=== PATIENT | male | born 1955 | race Caucasian/White ===

== ENCOUNTER 2016-10-24 08:35 | Inpatient (IN) | payer OTHER ==
[~2016-10-24] VITALS: Ht 188 cm; Wt 84.4 kg
[~2016-10-24 08:35] MED LIST: ADVAIR HFA120 INHALA IH; ADVIL200 MG PO; AUBAGIO14 MG PO; AUGMENTIN875 MG PO; BREO ELLIPTA I1 EACH IH; CALTRATE 6001 TABLE1 PO; CIPRO250 MG PO; CIPROFLOXACIN500 M1 PO; COLACE100 MG PO; DOXYCYCLINE HY100 M3 PO; GABAPENTIN300 MG PO; NICODERM CQ1 EAC2 TD; NORCO 5/3251 TABLET PO; PREDNISONE10 M1 PO; PROAIR HFA8.5 GM IH; SPIRIVA RESPIMAT4 GM IH; SPIRIVA1 INHALATI IH; TAMSULOSIN HCL0.4 MG PO; TUDORZA PRESS400 MCG IH; TYLENOL COLD &1 EACH PO; TYLENOL PM1 CAPLET PO; TYSABRI300 MG/15 IV
[2016-10-26] MEDS ORDERED: PREDNISONE20 MG PO (09:12)
[2016-10-26] MEDS ORDERED: LEVAQUIN500 MG PO (09:12)
[2016-10-26] MEDS ORDERED: TAMSULOSIN HCL0.4 MG PO (09:12)
[2017-01-16 06:18] VITALS: BP 119/77
[2017-01-16 06:38] LABS: BASOPHIL COUNT 0.1 K/uL (0-0.1); EOSINOPHIL COUNT 0.5 K/uL (0-0.3); HEMATOCRIT 42.6 % (38.0-50.0); IMMATURE GRANULOCYTE (%) 0.3 % (0.0-0.7); LYMPHOCYTE COUNT 2.4 K/uL (1.0-2.8); MCH 27.6 PG (29.0-34.0); MCHC 31.9 G/DL (30.0-36.0); MCV 86.6 FL (86-99); MONOCYTE (%) 10.4 % (3-12); MONOCYTE COUNT 1.1 K/uL (0-0.8); NEUTROPHIL (%) 59.9 % (45-76); NEUTROPHIL COUNT 6.1 K/uL (1.8-6.4); PLATELET COUNT 249 K/uL (156-360); RBC DIS.WIDTH-CV 14.6 % (11.8-14.6); RBC DIS.WIDTH-SD 46.1 % (39-53); RED BLOOD COUNT 4.92 M/uL (4.00-5.50); WHITE BLOOD COUNT 10.1 K/uL (4.1-10.2)
[2017-01-16 06:41] LABS: PROTHROMBIN TIME 9.8 (9.2-11.2); PTT 25.9 (25-32)
[2017-01-16 06:47] LABS: ANION GAP 7 MEQ/L (2-14); CHLORIDE 108 MEQ/L (99-109); POTASSIUM 4.4 MEQ/L (3.7-5.4); SAMPLE HEMOLYSIS CHECK 0; SAMPLE ICTERIC CHECK 0; SAMPLE LIPEMIA CHECK 0; SODIUM 142 MEQ/L (136-147); TOTAL BILIRUBIN 0.4 MG/DL (0.0-1.0)
[2017-01-16 06:53] LABS: ALKALINE PHOSPHATASE 66 IU/L (3-129); GFR ESTIMATE (CALCULATED) > 59 mL/min/; GLUCOSE 88 mg/dL (70-99); UREA NITROGEN (BUN) 17 mg/dL (9-23)
[2017-01-16 11:43] LABS: BASOPHIL COUNT 0.1 K/uL (0-0.1); EOSINOPHIL (%) 0.7 % (0-5); EOSINOPHIL COUNT 0.2 K/uL (0-0.3); IMMATURE GRANULOCYTE (%) 0.4 % (0.0-0.7); IMMATURE GRANULOCYTE COUNT 0.1 K/uL; LYMPHOCYTE COUNT 1.5 K/uL (1.0-2.8); MCHC 33.4 G/DL (30.0-36.0); MCV 86.6 FL (86-99); MEAN PLAT.VOLUME 10.2 uM^3 (9.0-12.4); MONOCYTE (%) 5.5 % (3-12); MONOCYTE COUNT 1.4 K/uL (0-0.8); NEUTROPHIL COUNT 21.3 K/uL (1.8-6.4); PLATELET COUNT 243 K/uL (156-360); RBC DIS.WIDTH-CV 14.4 % (11.8-14.6); RBC DIS.WIDTH-SD 45.5 % (39-53); RED BLOOD COUNT 4.04 M/uL (4.00-5.50)
[2017-01-16 11:44] LABS: WHITE BLOOD COUNT 24.5 K/uL (4.1-10.2)
[2017-01-16 16:46] LABS: METH RESISTANT S AUREUS PCR NEGATIVE (NEGATIVE)
[2017-01-16 16:47] LABS: PROBE CHECK PASS; SPECIMEN PROCESSING CONTROL PASS
[2017-01-17 06:15] LABS: ANION GAP 7 MEQ/L (2-14); CHLORIDE 106 MEQ/L (99-109); GFR ESTIMATE (CALCULATED) > 59 mL/min/; GLUCOSE 103 mg/dL (70-99); POTASSIUM 4.7 MEQ/L (3.7-5.4); SAMPLE HEMOLYSIS CHECK 0; SAMPLE ICTERIC CHECK 0; SAMPLE LIPEMIA CHECK 0; SODIUM 137 MEQ/L (136-147); UREA NITROGEN (BUN) 16 mg/dL (9-23)
[2017-01-17 06:26] LABS: HEMATOCRIT 29.2 % (38.0-50.0); MCH 27.6 PG (29.0-34.0); MCHC 32.2 G/DL (30.0-36.0); MCV 85.6 FL (86-99); MEAN PLAT.VOLUME 10.1 uM^3 (9.0-12.4); PLATELET COUNT 219 K/uL (156-360); RBC DIS.WIDTH-CV 14.6 % (11.8-14.6); RBC DIS.WIDTH-SD 45.6 % (39-53); RED BLOOD COUNT 3.41 M/uL (4.00-5.50)
[2017-01-17 06:37] LABS: WHITE BLOOD COUNT 14.8 K/uL (4.1-10.2)
[2017-01-17 12:00] VITALS: BP 86/56
[2017-01-17 20:00] VITALS: BP 104/61
[2017-01-18] VITALS (9 sets, daily range): BP systolic 80–110; BP diastolic 52–69
[2017-01-18 05:54] LABS: HEMATOCRIT 24.9 % (38.0-50.0); MCH 29.3 PG (29.0-34.0); MCHC 33.7 G/DL (30.0-36.0); MCV 86.8 FL (86-99); MEAN PLAT.VOLUME 10.4 uM^3 (9.0-12.4); PLATELET COUNT 171 K/uL (156-360); RBC DIS.WIDTH-CV 14.7 % (11.8-14.6); RED BLOOD COUNT 2.87 M/uL (4.00-5.50); WHITE BLOOD COUNT 12.5 K/uL (4.1-10.2)
[2017-01-18 06:17] LABS: ANION GAP 6 MEQ/L (2-14); CHLORIDE 102 MEQ/L (99-109); GFR ESTIMATE (CALCULATED) > 59 mL/min/; GLUCOSE 104 mg/dL (70-99); POTASSIUM 4.2 MEQ/L (3.7-5.4); SAMPLE HEMOLYSIS CHECK 0; SAMPLE ICTERIC CHECK 0; SAMPLE LIPEMIA CHECK 0; SODIUM 135 MEQ/L (136-147); UREA NITROGEN (BUN) 19 mg/dL (9-23)
[2017-01-19] VITALS (10 sets, daily range): BP systolic 88–119; BP diastolic 55–66
[2017-01-19 06:10] LABS: HEMATOCRIT 25.4 % (38.0-50.0); MCH 28.1 PG (29.0-34.0); MCHC 32.7 G/DL (30.0-36.0); MCV 86.1 FL (86-99); MEAN PLAT.VOLUME 10.1 uM^3 (9.0-12.4); PLATELET COUNT 197 K/uL (156-360); RBC DIS.WIDTH-CV 14.7 % (11.8-14.6); RBC DIS.WIDTH-SD 46.5 % (39-53); RED BLOOD COUNT 2.95 M/uL (4.00-5.50)
[2017-01-19 06:39] LABS: ANION GAP 7 MEQ/L (2-14); CHLORIDE 103 MEQ/L (99-109); GFR ESTIMATE (CALCULATED) > 59 mL/min/; GLUCOSE 102 mg/dL (70-99); POTASSIUM 4.2 MEQ/L (3.7-5.4); SAMPLE HEMOLYSIS CHECK 0; SAMPLE ICTERIC CHECK 0; SAMPLE LIPEMIA CHECK 0; SODIUM 135 MEQ/L (136-147); UREA NITROGEN (BUN) 17 mg/dL (9-23)
[2017-01-20] VITALS (18 sets, daily range): BP systolic 85–112; BP diastolic 52–68
[2017-01-20 05:45] LABS: HEMATOCRIT 22.6 % (38.0-50.0); MCH 28.7 PG (29.0-34.0); MCHC 33.2 G/DL (30.0-36.0); MCV 86.6 FL (86-99); MEAN PLAT.VOLUME 10.3 uM^3 (9.0-12.4); PLATELET COUNT 224 K/uL (156-360); RBC DIS.WIDTH-CV 14.8 % (11.8-14.6); RBC DIS.WIDTH-SD 46.4 % (39-53); RED BLOOD COUNT 2.61 M/uL (4.00-5.50); WHITE BLOOD COUNT 13.1 K/uL (4.1-10.2)
[2017-01-20 06:11] LABS: ANION GAP 9 MEQ/L (2-14); CHLORIDE 101 MEQ/L (99-109); GFR ESTIMATE (CALCULATED) > 59 mL/min/; GLUCOSE 98 mg/dL (70-99); POTASSIUM 4.1 MEQ/L (3.7-5.4); SAMPLE HEMOLYSIS CHECK 0; SAMPLE ICTERIC CHECK 0; SAMPLE LIPEMIA CHECK 0; SODIUM 136 MEQ/L (136-147); UREA NITROGEN (BUN) 18 mg/dL (9-23)
[2017-01-21] VITALS (15 sets, daily range): BP systolic 87–123; BP diastolic 54–73
[2017-01-21 06:30] LABS: ANION GAP 9 MEQ/L (2-14); CHLORIDE 100 MEQ/L (99-109); GFR ESTIMATE (CALCULATED) > 59 mL/min/; GLUCOSE 92 mg/dL (70-99); POTASSIUM 3.9 MEQ/L (3.7-5.4); SAMPLE HEMOLYSIS CHECK 0; SAMPLE ICTERIC CHECK 0; SAMPLE LIPEMIA CHECK 0; SODIUM 137 MEQ/L (136-147); UREA NITROGEN (BUN) 19 mg/dL (9-23)
[2017-01-21 06:41] LABS: HEMATOCRIT 28.5 % (38.0-50.0); MCH 28.6 PG (29.0-34.0); MCHC 33.7 G/DL (30.0-36.0); MCV 84.8 FL (86-99); PLATELET COUNT 224 K/uL (156-360); RBC DIS.WIDTH-CV 14.6 % (11.8-14.6); RBC DIS.WIDTH-SD 45.1 % (39-53); RED BLOOD COUNT 3.36 M/uL (4.00-5.50); WHITE BLOOD COUNT 10.6 K/uL (4.1-10.2)
[2017-01-22] VITALS (10 sets, daily range): BP systolic 90–119; BP diastolic 49–70
[2017-01-22 05:52] LABS: HEMATOCRIT 31.4 % (38.0-50.0); MCH 27.5 PG (29.0-34.0); MCHC 32.2 G/DL (30.0-36.0); MCV 85.6 FL (86-99); MEAN PLAT.VOLUME 9.3 uM^3 (9.0-12.4); PLATELET COUNT 272 K/uL (156-360); RBC DIS.WIDTH-CV 14.6 % (11.8-14.6); RBC DIS.WIDTH-SD 45.4 % (39-53); RED BLOOD COUNT 3.67 M/uL (4.00-5.50); WHITE BLOOD COUNT 10.8 K/uL (4.1-10.2)
[2017-01-22 06:18] LABS: ANION GAP 8 MEQ/L (2-14); CHLORIDE 100 MEQ/L (99-109); GFR ESTIMATE (CALCULATED) > 59 mL/min/; GLUCOSE 97 mg/dL (70-99); POTASSIUM 4.1 MEQ/L (3.7-5.4); SAMPLE HEMOLYSIS CHECK 0; SAMPLE ICTERIC CHECK 0; SAMPLE LIPEMIA CHECK 0; SODIUM 136 MEQ/L (136-147); UREA NITROGEN (BUN) 18 mg/dL (9-23)
[2017-01-23] VITALS (9 sets, daily range): BP systolic 87–130; BP diastolic 48–68
[2017-01-23 05:38] LABS: HEMATOCRIT 30.2 % (38.0-50.0); MCH 27.6 PG (29.0-34.0); MCHC 32.1 G/DL (30.0-36.0); MEAN PLAT.VOLUME 9.1 uM^3 (9.0-12.4); PLATELET COUNT 320 K/uL (156-360); RBC DIS.WIDTH-CV 14.4 % (11.8-14.6); RED BLOOD COUNT 3.51 M/uL (4.00-5.50); WHITE BLOOD COUNT 11.3 K/uL (4.1-10.2)
[2017-01-23 06:07] LABS: ANION GAP 6 MEQ/L (2-14); CHLORIDE 100 MEQ/L (99-109); GFR ESTIMATE (CALCULATED) > 59 mL/min/; GLUCOSE 92 mg/dL (70-99); POTASSIUM 4.1 MEQ/L (3.7-5.4); SAMPLE HEMOLYSIS CHECK 0; SAMPLE ICTERIC CHECK 0; SAMPLE LIPEMIA CHECK 0; SODIUM 134 MEQ/L (136-147); UREA NITROGEN (BUN) 14 mg/dL (9-23)
[2017-01-24] VITALS (7 sets, daily range): BP systolic 85–105; BP diastolic 45–61
[2017-01-24 06:44] LABS: HEMATOCRIT 29.8 % (38.0-50.0); MCH 28.5 PG (29.0-34.0); MCHC 32.9 G/DL (30.0-36.0); MCV 86.6 FL (86-99); RBC DIS.WIDTH-CV 14.1 % (11.8-14.6); RBC DIS.WIDTH-SD 44.6 % (39-53); RED BLOOD COUNT 3.44 M/uL (4.00-5.50); WHITE BLOOD COUNT 12.1 K/uL (4.1-10.2)
[2017-01-24 07:10] LABS: PLATELET COUNT 421 K/uL (156-360)
[2017-01-24 07:15] LABS: ANION GAP 10 MEQ/L (2-14); CHLORIDE 100 MEQ/L (99-109); GFR ESTIMATE (CALCULATED) > 59 mL/min/; GLUCOSE 81 mg/dL (70-99); POTASSIUM 4.5 MEQ/L (3.7-5.4); SAMPLE HEMOLYSIS CHECK 0; SAMPLE ICTERIC CHECK 0; SAMPLE LIPEMIA CHECK 0; SODIUM 136 MEQ/L (136-147); UREA NITROGEN (BUN) 11 mg/dL (9-23)
[2017-01-25] VITALS (7 sets, daily range): BP systolic 89–102; BP diastolic 53–64
[2017-01-26 03:59] VITALS: BP 92/52
[2017-01-26 07:56] VITALS: BP 97/58
[2017-01-26 11:25] VITALS: BP 91/60
[2017-01-26 15:27] VITALS: BP 106/61
[2017-01-26 20:14] VITALS: BP 100/59
[2017-01-27 00:26] VITALS: BP 105/60
[2017-01-27 04:09] VITALS: BP 98/54
[2017-01-27 08:38] VITALS: BP 92/50
[2017-01-27 11:52] VITALS: BP 97/53
[2017-01-27 15:34] VITALS: BP 101/57
[2017-01-28] VITALS (7 sets, daily range): BP systolic 94–125; BP diastolic 50–70
[2017-01-29 04:05] VITALS: BP 96/53
[2017-01-29 08:22] VITALS: BP 122/59
[2017-01-29 11:05] VITALS: BP 98/52
[2017-01-29 15:24] VITALS: BP 99/51
[2017-01-29 21:24] VITALS: BP 98/54
[2017-01-29 22:53] VITALS: BP 100/59
[2017-01-30 04:31] VITALS: BP 101/60; BP 148/66
[2017-01-30 09:48] VITALS: BP 92/54
[2017-01-30 11:11] VITALS: BP 90/55
[2017-01-30 15:02] VITALS: BP 100/56
[2017-01-30 18:44] VITALS: BP 103/55
[2017-01-30 22:17] VITALS: BP 92/60
[2017-01-31 03:50] VITALS: BP 98/58
[2017-01-31 07:17] VITALS: BP 93/55
[2017-01-31 11:24] VITALS: BP 108/55
[2017-01-31 15:11] VITALS: BP 115/64
[2017-01-31 20:16] VITALS: BP 100/58
[2017-01-31 23:39] VITALS: BP 127/70
[2017-02-01 04:20] VITALS: BP 100/58
[2017-02-01 07:03] VITALS: BP 96/59
[2017-02-01 11:03] VITALS: BP 104/63
[2017-02-01 15:50] VITALS: BP 99/60
[2017-02-01 20:09] VITALS: BP 102/62
[2017-02-01 23:57] VITALS: BP 98/54
[2017-02-02 03:44] VITALS: BP 134/70
[2017-02-02 07:01] VITALS: BP 94/59
[2017-02-02 11:24] VITALS: BP 95/58
[2017-02-02 15:12] VITALS: BP 101/59
[2017-02-02 19:10] VITALS: BP 105/55
[2017-02-03 00:10] VITALS: BP 100/57
[2017-02-03 04:00] VITALS: BP 97/52
[2017-02-03 06:32] LABS: HEMATOCRIT 35.2 % (38.0-50.0); MCH 27.8 PG (29.0-34.0); MCHC 31.5 G/DL (30.0-36.0); MEAN PLAT.VOLUME 8.7 uM^3 (9.0-12.4); RBC DIS.WIDTH-CV 14.3 % (11.8-14.6); RBC DIS.WIDTH-SD 45.9 % (39-53)
[2017-02-03 06:39] LABS: ANION GAP 12 MEQ/L (2-14); CHLORIDE 96 MEQ/L (99-109); GFR ESTIMATE (CALCULATED) > 59 mL/min/; GLUCOSE 88 mg/dL (70-99); POTASSIUM 4.9 MEQ/L (3.7-5.4); SAMPLE HEMOLYSIS CHECK 0; SAMPLE ICTERIC CHECK 0; SAMPLE LIPEMIA CHECK 0; SODIUM 135 MEQ/L (136-147); UREA NITROGEN (BUN) 12 mg/dL (9-23)
[2017-02-03 06:41] LABS: PLATELET COUNT 683 K/uL (156-360); WHITE BLOOD COUNT 16.5 K/uL (4.1-10.2)
[2017-02-03 07:30] VITALS: BP 99/63
[2017-02-03 11:34] VITALS: BP 101/57
[2017-02-03] MEDS ORDERED: DIGOXIN250 MCG PO (14:36)
[2017-02-03] MEDS ORDERED: LOPRESSOR25 MG PO (14:36)
[2017-02-03] MEDS ORDERED: FOLBEE PLUS TABL5 MG PO (14:36)
[2017-02-03] MEDS ORDERED: ENDOCET 5-3251 EACH PO (14:36)
[2017-02-03] MEDS ORDERED: MUCINEX600 MG PO (14:36)
[2017-02-03] MEDS ORDERED: CHROMAGEN,1 CAPSULE PO (14:36)
[2017-02-03] MEDS ORDERED: ADVAIR HFA120 INHALA IH (14:36)
== END 2017-02-03 17:47 | disposition home health service (06) | DRG 164 ==
LOC: 2SOUTH 08:35 → 4EAST 01-16 05:30 → 4WEST 01-16 05:30 → 2SOUTH 01-16 09:13 → 4WEST 01-16 15:03 → 2SOUTH 01-16 15:16 → 4EAST 01-24 12:32
PROVIDERS: Thoracic Surgery (Cardiothoracic Vascular Surgery)
PROC: 0BTC0ZZ Resection of Right Upper Lung Lobe, Open Approach (ICD-10-PCS; principal; 2017-01-16)
PROC: 03HY32Z Insertion of Monitoring Device into Upper Artery, Percutaneous Approach (ICD-10-PCS; principal; 2017-01-16)
PROC: 00HU33Z Insertion of Infusion Device into Spinal Canal, Percutaneous Approach (ICD-10-PCS; principal; 2017-01-16)
PROC: 4A133B1 Monitoring of Arterial Pressure, Peripheral, Percutaneous Approach (ICD-10-PCS; principal; 2017-01-16)
PROC: 4A133J1 Monitoring of Arterial Pulse, Peripheral, Percutaneous Approach (ICD-10-PCS; principal; 2017-01-16)
PROC: 3E0S3CZ (ICD-10-PCS; principal; 2017-01-16)
PROC: 0HD6XZZ Extraction of Back Skin, External Approach (ICD-10-PCS; 2017-02-03)
DX: C34.11 Malignant neoplasm of upper lobe, right bronchus or lung (principal); J95.812 Postprocedural air leak; J95.89 Other postprocedural complications and disorders of respiratory system, not elsewhere classified; J98.11 Atelectasis; T81.31XA Disruption of external operation (surgical) wound, not elsewhere classified, initial encounter; Y83.6 Removal of other organ (partial) (total) as the cause of abnormal reaction of the patient, or of later complication, without mention of misadventure at the time of the procedure; L89.899 Pressure ulcer of other site, unspecified stage; J44.9 Chronic obstructive pulmonary disease, unspecified; G35 Multiple sclerosis; Z87.891 Personal history of nicotine dependence; Z87.440 Personal history of urinary (tract) infections
CPT/HCPCS: 71010; 71020; 80048; 80053; 85025; 85025 91; 85027; 85610; 85730; 86850; 86900; 86901; 86920; 87641; 88300; 88305; 88309; 88313; 94010; 94640; 94640 76; 94667; 94668; 94799; 97530 GO; 97530 GP; 99202; J0330; J0690; J1100; J1160; J1644; J1885; J1940; J2250; J2405; J2710; J3010; J3420; J7040; J7050; J7120; P9016

== ENCOUNTER 2017-02-06 21:03 | Inpatient (IN) | payer OTHER ==
[~2017-02-06] VITALS: Ht 188 cm; Wt 78.8 kg
[~2017-02-06 21:03] MED LIST changes: +CHROMAGEN,1 CAPSULE PO; +DIGOXIN250 MCG PO; +ENDOCET 5-3251 EACH PO; +FOLBEE PLUS TABL5 MG PO; +LEVAQUIN500 MG PO; +LOPRESSOR25 MG PO; +MUCINEX600 MG PO; +PREDNISONE20 MG PO
[2017-02-06 22:19] LABS: CHLORIDE 98 mEq/L (99-109); POTASSIUM 4.4 mEq/L (3.7-5.4); SODIUM 134 mEq/L (136-147)
[2017-02-06 22:21] LABS: GLUCOSE 113 mg/dL (70-99)
[2017-02-06 22:22] LABS: ANION GAP 14 MEQ/L (2-14)
[2017-02-06 22:23] LABS: BASOPHIL COUNT 0.1 K/uL (0-0.1); EOSINOPHIL (%) 0 % (0-5); HEMATOCRIT 32.5 % (38.0-50.0); IMMATURE GRANULOCYTE COUNT 0.3 K/uL; INSTRUMENT ABS NEUTROPHIL CT 24.8 K/uL; MCH 27.6 PG (29.0-34.0); MCHC 32.3 G/DL (30.0-36.0); MCV 85.5 FL (86-99); MEAN PLAT.VOLUME 8.5 uM^3 (9.0-12.4); MONOCYTE COUNT 1.7 K/uL (0-0.8); NEUTROPHIL (%) 89.1 % (45-76); NEUTROPHIL COUNT 24.8 K/uL (1.8-6.4); PLATELET COUNT 537 K/uL (156-360); RBC DIS.WIDTH-CV 14.2 % (11.8-14.6); RBC DIS.WIDTH-SD 44.7 % (39-53); WHITE BLOOD COUNT 27.8 K/uL (4.1-10.2)
[2017-02-06 22:25] LABS: GFR ESTIMATE (CALCULATED) > 59 mL/min/
[2017-02-06 22:26] LABS: TROP-I INTERPRETATION NEGATIVE; TROPONIN-I < 0.01 ng/mL (0.0-0.30); UREA NITROGEN (BUN) 11 mg/dL (9-23)
[2017-02-06 22:27] LABS: CREATINE KINASE 30 IU/L (1-294)
[2017-02-06 23:28] LABS: ADD MIUA? YES; BILIRUBIN NEGATIVE; BLOOD MODERATE; COLOR YELLOW ((YELLOW)); GLUCOSE (STRIP) NEGATIVE; KETONES NEGATIVE; LEUKOCYTES MODERATE; NITRITE POSITIVE; PROTEIN (STRIP) 30; SPECIFIC GRAVITY 1.016 (1.000-1.030); UROBILINOGEN 0.2 MG/DL (0.2-1.0)
[2017-02-06 23:52] LABS: BACTERIA 3+ /HPF; EPITHELIAL CELLS RARE /HPF; HYALINE CASTS 0-5 /LPF; MUCUS TRACE /LPF; RED BLOOD CELLS 0-5 /HPF (0-5); UCUL ADDED? YES
[2017-02-07] VITALS (20 sets, daily range): BP systolic 65–135; BP diastolic 42–73
[2017-02-07] MEDS ORDERED: TAMSULOSIN HCL0.4 MG PO (00:08)
[2017-02-07] MEDS ORDERED: COLACE100 MG PO (00:10)
[2017-02-07] MEDS ORDERED: DIGITEK250 MC2 PO (00:11)
[2017-02-07 01:37] LABS: INFLUENZA A VIRAL ANTIGEN NEGATIVE; INFLUENZA B VIRAL ANTIGEN NEGATIVE
[2017-02-07 10:45] LABS: HEMATOCRIT 26.5 % (38.0-50.0); MCH 28.4 PG (29.0-34.0); MCHC 32.8 G/DL (30.0-36.0); MCV 86.6 FL (86-99); RBC DIS.WIDTH-CV 14.4 % (11.8-14.6); RBC DIS.WIDTH-SD 45.7 % (39-53); RED BLOOD COUNT 3.06 M/uL (4.00-5.50)
[2017-02-07 10:47] LABS: WHITE BLOOD COUNT 36.3 K/uL (4.1-10.2)
[2017-02-07 10:58] LABS: ABS NEUTROPHIL COUNT 33.8; ANISOCYTOSIS 1+; ATYPICAL LYMPHOCYTE 1.5 %; BAND NEUTROPHILS 19.5 % (0-8.0); BASOPHILS 0.5 %; EOSINOPHIL ABS CT 0; INSTRUMENT ABS NEUTROPHIL CT 34.3 K/uL; METAMYELOCYTES 2.5 %; PLAT.SUFFICIENCY ADEQUATE; SEG.NEUTROPHILS 73.5 % (46.0-76.0)
[2017-02-07 10:59] LABS: PLATELET COUNT UNABLE TO REPORT K/uL (156-360)
[2017-02-07 11:07] LABS: BASE EXCESS -4.4 mEq/L (-3 to +3); BICARBONATE 19.8 mEq/L (22-26); CARBOXY HGB 1.6 % (0-5); COMMENTS - BLOOD GASES A+C+; METHEMOGLOBIN 1.5 % (0-1.5); PCO2 32 mm Hg (35-45); PO2 87 mm Hg (80-100); SITE LR
[2017-02-07 11:08] LABS: DEVICE NC; O2 FLOW 3 L/MIN
[2017-02-07 13:34] LABS: ANION GAP 13 MEQ/L (2-14); CHLORIDE 105 MEQ/L (99-109); GFR ESTIMATE (CALCULATED) > 59 mL/min/; GLUCOSE 114 mg/dL (70-99); POTASSIUM 3.9 MEQ/L (3.7-5.4); SAMPLE HEMOLYSIS CHECK 0; SAMPLE ICTERIC CHECK 0; SAMPLE LIPEMIA CHECK 0; SODIUM 138 MEQ/L (136-147); UREA NITROGEN (BUN) 14 mg/dL (9-23)
[2017-02-07 13:40] LABS: METH RESISTANT S AUREUS PCR NEGATIVE (NEGATIVE)
[2017-02-07 13:42] LABS: PROBE CHECK PASS; SPECIMEN PROCESSING CONTROL PASS
[2017-02-08] VITALS (10 sets, daily range): BP systolic 93–125; BP diastolic 59–71
[2017-02-08 07:34] LABS: ANION GAP 12 MEQ/L (2-14); CHLORIDE 109 MEQ/L (99-109); GFR ESTIMATE (CALCULATED) > 59 mL/min/; GLUCOSE 95 mg/dL (70-99); POTASSIUM 4.2 MEQ/L (3.7-5.4); SAMPLE HEMOLYSIS CHECK 0; SAMPLE ICTERIC CHECK 0; SAMPLE LIPEMIA CHECK 0; SODIUM 140 MEQ/L (136-147); UREA NITROGEN (BUN) 20 mg/dL (9-23)
[2017-02-08 07:35] LABS: C DIFF TOXIN POSITIVE (NEGATIVE); PROBE CHECK PASS
[2017-02-08 17:08] LABS: POINT-OF-CARE METER ID UU13113803
[2017-02-08 22:43] LABS: POINT-OF-CARE METER ID UU14162636
[2017-02-09] VITALS (7 sets, daily range): BP systolic 116–133; BP diastolic 64–78
[2017-02-09 06:14] LABS: MEAN PLAT.VOLUME 9.7 uM^3 (9.0-12.4); PLATELET COUNT 291 K/uL (156-360)
[2017-02-09 06:27] LABS: HEMATOCRIT 25.5 % (38.0-50.0); MCH 27.7 PG (29.0-34.0); MCHC 32.9 G/DL (30.0-36.0); MCV 84.2 FL (86-99); NRBC (%) 0.1 /100 WBC (0-0); RBC DIS.WIDTH-CV 14.9 % (11.8-14.6); RBC DIS.WIDTH-SD 46.1 % (39-53); RED BLOOD COUNT 3.03 M/uL (4.00-5.50)
[2017-02-09 06:37] LABS: ANION GAP 8 MEQ/L (2-14); CHLORIDE 115 MEQ/L (99-109); GFR ESTIMATE (CALCULATED) > 59 mL/min/; GLUCOSE 115 mg/dL (70-99); MAGNESIUM 1.9 mg/dl (1.3-2.7); POTASSIUM 3.8 MEQ/L (3.7-5.4); SAMPLE HEMOLYSIS CHECK 0; SAMPLE ICTERIC CHECK 0; SAMPLE LIPEMIA CHECK 0; SODIUM 142 MEQ/L (136-147); UREA NITROGEN (BUN) 27 mg/dL (9-23)
[2017-02-09 06:37] LABS: WHITE BLOOD COUNT 30.5 K/uL (4.1-10.2)
[2017-02-10] VITALS: BP 134/73
[2017-02-10 04:00] VITALS: BP 131/81
[2017-02-10 06:27] LABS: ANION GAP 10 MEQ/L (2-14); CHLORIDE 115 MEQ/L (99-109); GFR ESTIMATE (CALCULATED) > 59 mL/min/; GLUCOSE 94 mg/dL (70-99); POTASSIUM 3.5 MEQ/L (3.7-5.4); SAMPLE HEMOLYSIS CHECK 0; SAMPLE ICTERIC CHECK 0; SAMPLE LIPEMIA CHECK 0; SODIUM 143 MEQ/L (136-147); UREA NITROGEN (BUN) 27 mg/dL (9-23)
[2017-02-10 06:30] LABS: HEMATOCRIT 25.9 % (38.0-50.0); MCH 28.1 PG (29.0-34.0); MCHC 33.2 G/DL (30.0-36.0); MCV 84.6 FL (86-99); PLATELET COUNT 267 K/uL (156-360); RBC DIS.WIDTH-SD 46.4 % (39-53); RED BLOOD COUNT 3.06 M/uL (4.00-5.50)
[2017-02-10 08:00] VITALS: BP 134/77
[2017-02-10 12:00] VITALS: BP 141/80
[2017-02-10 15:20] VITALS: BP 140/78
[2017-02-10 19:45] VITALS: BP 137/76
[2017-02-11 01:00] VITALS: BP 144/77
[2017-02-11 08:10] VITALS: BP 142/70
[2017-02-11 09:02] LABS: HEMATOCRIT 29.4 % (38.0-50.0); MCH 27.6 PG (29.0-34.0); MCV 83.8 FL (86-99); MEAN PLAT.VOLUME 10.3 uM^3 (9.0-12.4); NRBC (%) 0.1 /100 WBC (0-0); PLATELET COUNT 299 K/uL (156-360); RBC DIS.WIDTH-CV 14.9 % (11.8-14.6); RBC DIS.WIDTH-SD 45.3 % (39-53); RED BLOOD COUNT 3.51 M/uL (4.00-5.50)
[2017-02-11 09:25] LABS: ALKALINE PHOSPHATASE 81 IU/L (3-129); ANION GAP 9 MEQ/L (2-14); CHLORIDE 109 MEQ/L (99-109); GFR ESTIMATE (CALCULATED) > 59 mL/min/; GLUCOSE 67 mg/dL (70-99); POTASSIUM 3.6 MEQ/L (3.7-5.4); SAMPLE HEMOLYSIS CHECK 0; SAMPLE ICTERIC CHECK 0; SAMPLE LIPEMIA CHECK 0; SODIUM 140 MEQ/L (136-147); TOTAL BILIRUBIN 0.4 MG/DL (0.0-1.0); UREA NITROGEN (BUN) 17 mg/dL (9-23)
[2017-02-11 11:40] VITALS: BP 136/68
[2017-02-11 16:08] VITALS: BP 147/83
[2017-02-11 22:12] LABS: ABS NEUTROPHIL COUNT 13.4; ATYPICAL LYMPHOCYTE 1.8 %; BAND NEUTROPHILS 17.3 % (0-8.0); EOSINOPHIL ABS CT 0; HYPOCHROMASIA 1+; INSTRUMENT ABS NEUTROPHIL CT 11.8 K/uL; LYMPHOCYTES 7.3 % (15.0-45.0); METAMYELOCYTES 1.8 %; MYELOCYTES 1.8 %; PLAT.SUFFICIENCY ADEQUATE; POIKILOCYTOSIS 3+; SEG.NEUTROPHILS 66.4 % (46.0-76.0); SMUDGE CELLS 12.7
[2017-02-11 23:37] VITALS: BP 124/82
[2017-02-12 03:59] VITALS: BP 130/78
[2017-02-12 07:23] LABS: ANION GAP 7 MEQ/L (2-14); CHLORIDE 106 MEQ/L (99-109); GFR ESTIMATE (CALCULATED) > 59 mL/min/; GLUCOSE 79 mg/dL (70-99); POTASSIUM 3.3 MEQ/L (3.7-5.4); SAMPLE HEMOLYSIS CHECK 0; SAMPLE ICTERIC CHECK 0; SAMPLE LIPEMIA CHECK 0; SODIUM 139 MEQ/L (136-147); UREA NITROGEN (BUN) 12 mg/dL (9-23)
[2017-02-12 07:41] LABS: HEMATOCRIT 32.2 % (38.0-50.0); MCH 27.4 PG (29.0-34.0); MCHC 32.9 G/DL (30.0-36.0); MCV 83.2 FL (86-99); MEAN PLAT.VOLUME 10.3 uM^3 (9.0-12.4); NRBC (%) 0.1 /100 WBC (0-0); PLATELET COUNT 300 K/uL (156-360); RBC DIS.WIDTH-CV 14.8 % (11.8-14.6); RBC DIS.WIDTH-SD 44.7 % (39-53); RED BLOOD COUNT 3.87 M/uL (4.00-5.50); WHITE BLOOD COUNT 19.9 K/uL (4.1-10.2)
[2017-02-12 07:51] LABS: PLAT.SUFFICIENCY ADEQUATE
[2017-02-12 08:15] VITALS: BP 150/80
[2017-02-12 12:23] VITALS: BP 105/70
[2017-02-12] MEDS ORDERED: VANCOMYCIN HCL125 MG PO (13:39)
[2017-02-12] MEDS ORDERED: BACTRIM,SEPT1 TABLET PO (13:39)
[2017-02-12] MEDS ORDERED: ACIDOPHILUS LA1 EAC1 PO (13:39)
== END 2017-02-12 16:09 | disposition home health service (06) | DRG 871 ==
LOC: EME → EDBD 21:03 → 4WEST 02-07 01:42 → EDOF 02-07 01:42 → 2EAST 02-07 01:42 → 4WEST 02-07 09:41 → 2EAST 02-10 15:05
PROVIDERS: Emergency Medicine; Family Medicine; Hospitalist; Internal Medicine; Internal Medicine Critical Care Medicine
DX: A41.59 Other Gram-negative sepsis (principal); R65.21 Severe sepsis with septic shock; N39.0 Urinary tract infection, site not specified; A04.7 Enterocolitis due to Clostridium difficile; C34.11 Malignant neoplasm of upper lobe, right bronchus or lung; B96.20 Unspecified Escherichia coli [E. coli] as the cause of diseases classified elsewhere; N31.9 Neuromuscular dysfunction of bladder, unspecified; R33.9 Retention of urine, unspecified; G35 Multiple sclerosis; J44.9 Chronic obstructive pulmonary disease, unspecified; Z87.891 Personal history of nicotine dependence; Z23 Encounter for immunization
CPT/HCPCS: 36600; 70450; 71010; 71260; 80048; 80053; 80170; 81003; 82040; 82533 91; 82550; 82803; 82948; 83605; 83735; 84484; 85025; 85027; 87040; 87070; 87075; 87077; 87086; 87186; 87205; 87493; 87502; 87641; 87801; 93005; 94799; 97530 GP; 99202; 99281; 99285; J0610; J0696; J1580; J1644; J1720; J1815; J1956; J2370; J2543; J2930; J3010; J3370; J7030; J7050; P9045